=== PATIENT | female | born 1970 | race Two or more races ===

== ENCOUNTER 2021-09-26 04:52 | Day surgery (SDC) | payer BC ==
[2021-09-21 13:58] VITALS: BMI 37.5
[2021-09-26 08:43] VITALS: TEMP 97.5
[2021-09-26 09:13] VITALS: BP 114/76; PULSE 72
== END 2021-09-26 09:40 | disposition home or self-care (01) ==
LOC: JASU-ENDO 04:52
PROVIDERS: ATTEND Internal Medicine Gastroenterology
PROC: 0DBP8ZX Excision of Rectum, Via Natural or Artificial Opening Endoscopic, Diagnostic (ICD-10-PCS; principal; 2021-09-26 08:00)
DX: Z12.11 Encounter for screening for malignant neoplasm of colon (principal); K64.8 Other hemorrhoids; K57.30 Diverticulosis of large intestine without perforation or abscess without bleeding; D12.8 Benign neoplasm of rectum; Z86.010 Personal history of colon polyps
CPT/HCPCS: 88305-TC